=== PATIENT | female | born 1990 | race Caucasian/White ===

== ENCOUNTER 2016-06-30 01:06 | Emergency (ER) | payer SELFPAY ==
[~2016-06-30] VITALS: Ht 165.1 cm; Wt 66.5 kg
[2016-06-30 01:18] VITALS: Ht 165.1 cm; Wt 66.5 kg
[2016-06-30] MEDS ORDERED: METHYLPREDNISOLONE 125 MG INJ IM ONE (03:00)
[2016-06-30] MEDS ORDERED: DIPHENHYDRAMINE 50 MG INJ IM ONE (03:00)
--- NOTE | 2016-06-30 03:14 | ERD ---
ER Documentation Chief Complaint Date/Time DATE: 06/30/16 TIME: 03:10 Chief Complaint rash all over body started fri night HPI 26-year-old female presents to emergency department for complaints of rash over the body started yesterday. Patient is complaints of itching all over the body. Patient denies any lip swelling, tongue swelling or stridor. Patient denies any shortness breath or wheezing. Patient took Benadryl [id number] home with mild relief. Patient denies any housemates with the same type of symptoms. ROS All systems reviewed and are negative except as per history of present illness. Medications Home Meds Reported Medications [none] Unknown Strength No Conflict Check 06/30/16 Allergies Allergies: Coded Allergies: No Known Allergy (Unverified , 06/30/16) PMhx/Soc Medical and Surgical Hx: pt denies Medical Hx History of Surgery: Yes (desmoid tumor removed) Anesthesia Reaction: No Hx Alcohol Use: No Hx Substance Use: No Hx Tobacco Use: No Smoking Status: Never smoker FmHx Family History: No coronary disease, No diabetes, No other Physical Exam Vitals Vital Signs Date Time Temp Pulse Resp B/P Pulse Ox O2 Delivery O2 Flow Rate FiO2 06/30/16 01:18 98.6 82 20 108/64 97 Physical Exam GENERAL: The patient is well developed and appropriate for usual state of health, in no apparent distress. CHEST: Clear to auscultation bilaterally. There are no rales, wheezes or rhonchi. HEART: Regular rate and rhythm. No murmurs, clicks, rubs or gallops. No S3 or S4. ABDOMEN: Soft, nontender and nondistended. Good bowel sounds. No rebound or guarding. No gross peritonitis. No gross organomegaly or masses. No Ortiz sign or McBurney point tenderness. BACK: No midline or flank tenderness. EXTREMITIES: Equal pulses bilaterally. There is no peripheral clubbing, cyanosis or edema. No focal swelling or erythema. Full range of motion. Grossly neurovascularly intact. NEURO: Alert and oriented. Cranial nerves 2-12 intact. Motor strength in all 4 extremities with 5/5 strength. Sensation grossly intact. Normal speech and gait. SKIN: Maculopapular rash noted all over the body. There is no apparent ecchymosis or petechia. The skin is warm and dry. HEMATOLOGIC AND LYMPHATIC: There is no evidence of excessive bruising or lymphedema. No gross cervical, axillary, or inguinal lymphadenopathy. Results 24 hrs Current Medications Medications (Trade) Dose Ordered Sig/Shakila Route PRN Reason Start Time Stop Time Status Last Admin Dose Admin Diphenhydramine HCl (Benadryl) 50 mg ONCE ONCE IM 06/30/16 03:00 06/30/16 03:01 DC 06/30/16 02:42 Methylprednisolone Sodium Succinate (Solu-Medrol) 125 mg ONCE ONCE IM 06/30/16 03:00 06/30/16 03:01 DC 06/30/16 02:42 Benadryl and Solu-Medrol was given in emergency department, after treatment, patient verbalizing much better. Procedures/MDM Medical decision making: Patient symptoms likely is consistent with urticaria, allergic reaction, unknown source at this time. No symptoms of anaphylactic shock, no symptoms of respiratory patient's, oral airway obstruction or angioedema. No suspicion for any contagious rash. Prescription was given for Benadryl, prednisone, was advised to follow-up with primary care doctor in 2-3 days for reevaluation of symptoms. Patient is advised to emergency department for any worsening symptoms. Departure Diagnosis: Primary Impression: Urticaria Condition: Stable Patient Instructions: SLICK Fluler NP Jun 30, 2016 03:14
[2016-06-30] MEDS ORDERED: BEN50 PO (03:17)
[2016-06-30] MEDS ORDERED: PRED50TA PO (03:17)
== END 2016-06-30 03:38 | disposition home or self-care (01) ==
LOC: FTE 01:06
DX: L50.9 Urticaria, unspecified (principal)
CPT/HCPCS: 96372; 99284; J1200; J2930